=== PATIENT | female | born 1990 | race Caucasian/White ===

== ENCOUNTER 2018-02-15 17:58 | Emergency (ER) | payer MEDICAID ==
[~2018-02-15] VITALS: Ht 172.7 cm; Wt 72.6 kg
[2018-02-15 18:09] VITALS: BP_SYST 131
--- NOTE | 2018-02-15 18:15 | NUR ---
Patient to ER bed 1 to await MD evaluation.
--- NOTE | 2018-02-15 18:20 | NUR ---
Patient to ER via triage with c/o abdominal pain with vomiting and diarrhea, patient also reports pain upon urination. Patient is awake, alert and oriented, vital signs stable, respirations even and unlabored, skin warm and dry to touch. Patient went to bathroom and provided urine sample before walking to ER bed 1, awaiting evaluation by ER MD, will continue to observe and assess.
--- NOTE | 2018-02-15 19:00 | NUR ---
Patient resting quietly in no acute distress, vital signs stable, respirations even and unlabored, skin warm and dry to touch.
[2018-02-15 19:13] LABS: BILIRUBIN,URINE 1+ (NEGATIVE); BLOOD, URINE TRACE (NEGATIVE); CLARITY/URINE CLEAR (CLEAR); COLOR,URINE YELLOW (YELLOW); GLUCOSE,URINE NEGATIVE (NEGATIVE); KETONES,URINE 2+ (NEGATIVE); LEUKOCYTE ESTERASE ,URINE NEGATIVE (NEGATIVE); NITRITE, URINE NEGATIVE (NEGATIVE); PROTEIN URINE 3+ (NEGATIVE); UROBILINOGEN,URINE 0.2 (0.2-1.0)
[2018-02-15] MEDS ORDERED: HALOPERIDOL LACTATE 5 MG/ML VIAL IVP ONE (19:15)
[2018-02-15 19:16] LABS: HEMOGLOBIN 14.1 g/dL (12.0-16.0); MEAN CORPUSCULAR HEMOGLOBIN 31 pg (27-31); MEAN CORPUSCULAR HGB CONC 34 % (32-36); MEAN CORPUSCULAR VOLUME 93 fL (79.0-98.0); PLATELET COUNT (AUTO) 376 K/uL (130-430); RED BLOOD CELL COUNT(AUTO) 4.54 MIL/uL (4.2-6.2); RED CELL DISTRIBUTION WIDTH 11.4 % (9.0-15.0); WHITE BLOOD COUNT (AUTO) 19.9 K/uL (4.8-10.8)
[2018-02-15 19:19] LABS: BACTERIA,URINE FEW /HPF (None Seen); RBC,URINE 0-3 /HPF (0-3); WBC,URINE 0-3 /HPF (0-3)
[2018-02-15 19:22] LABS: CALCIUM 9.8 mg/dL (8.4-11.0); CREATININE 0.79 mg/dL (0.55-1.30); POTASSIUM 3.2 mmol/L (3.5-5.1)
--- NOTE | 2018-02-15 19:23 | NUR ---
Medicated per MD orders. IVF infusing with no s/s of infiltration at this time. Placed on cardiac and spo2 monitoring. Boyfriend at bedside.
[2018-02-15 19:26] LABS: TOTAL BILIRUBIN 0.7 mg/dL (0.0-1.0)
[2018-02-15 19:28] LABS: BARBITURATE, URINE NEGATIVE (NEG <=200); BENZODIAZEPINE, URINE POSITIVE (NEG <=150); CANNABINOID, URINE POSITIVE (NEG <=50); COCAINE, URINE NEGATIVE (NEG <=150); METHAMPHETAMINES SCREEN,URINE NEGATIVE (NEG <=500); OPIATE, URINE POSITIVE (NEG <=100); PHENCYCLIDINE SCREEN,URINE NEGATIVE (NEG <=25); UR TRICYCLIC ANTIDEPRESSANTS NEGATIVE (NEG <=300); URINE AMPHETAMINE NEGATIVE (NEG <=500); URINE METHADONE NEGATIVE (NEG <=200); URINE OXYCODONE SCREEN NEGATIVE (NEG <=100); URINE PROPOXYPHENE SCREEN NEGATIVE (NEG <=300)
[2018-02-15 19:41] LABS: BAND % (MANUAL) 0 % (0-6)
[2018-02-15 19:42] LABS: BASOPHILS % (MANUAL) 0 % (0-2); EOSINOPHILS % (MANUAL) 0 % (0-7); LYMPHOCYTES % (MANUAL) 9 % (20-46); MONOCYTES % (MANUAL) 2 % (0-11)
--- NOTE | 2018-02-15 19:45 | NUR ---
IV fluids infusing without difficulty, no redness or swelling noted at site. Awaiting results and dispo.
[2018-02-15] MEDS ORDERED: NACL 0.9% 1,000 ML IV ONE ×2 (20:00→20:15)
--- NOTE | 2018-02-15 20:03 | NUR ---
Dr Ya speaking with patient regarding results and plan of care. Questions answered by Dr Ya
[2018-02-15 21:00] VITALS: BP_SYST 101
--- NOTE | 2018-02-15 21:00 | NUR ---
Patient requesting to go home, and to have IV removed. Spoke with Dr Ba, and he states OK remove IV, and that he will prepare discharge paperwork. Patient advised of this, and acknowledged understanding.
--- NOTE | 2018-02-15 21:10 | NUR ---
Patient walking out of ER, states that she does not wish to wait for/or sign paperwork. Patient walked out of ER in no acute distress with slow, steady gait. With friend who will dirve patient home. Patient left ER without written aftercare. Dr Ba aware of this.
== END 2018-02-15 21:10 | disposition home or self-care (01) ==
LOC: SED 17:58
DX: F12.188 Cannabis abuse with other cannabis-induced disorder (principal); R11.10 Vomiting, unspecified; Z88.0 Allergy status to penicillin; Z87.442 Personal history of urinary calculi
CPT/HCPCS: 36415; 80053; 80307; 81000; 81025; 83690; 85007; 85027; 96361; 96374; 99284; J1630; J7030